=== PATIENT | male | born 2000 | race Caucasian/White ===

== ENCOUNTER 2023-03-27 21:12 | Emergency (ER) | payer MEDICAID ==
[2023-03-27 22:00] LABS: BASOPHILS ABSOLUTE AUTO 0.03 K/mm3 (0.01-0.08); BASOPHILS PERCENT AUTO 0.4 % (0.1-1.2); EOSINOPHILS ABSOLUTE AUTO 0.32 K/mm3 (0.04-0.54); EOSINOPHILS PERCENT AUTO 3.7 (0.8-7.0); HEMATOCRIT 43.3 % (40.1-51.0); IMMATURE GRAN ABSOLUTE AUTO 0.01 K/mm3 (0.00-0.10); IMMATURE GRAN PERCENT AUTO 0.1 % (<=1.0); LYMPHOCYTES ABSOLUTE AUTO 3.06 K/mm3 (1.32-3.57); LYMPHOCYTES PERCENT AUTO 35.8 % (21.8-53.1); MEAN CORPUSCULAR HEMOGLOBIN 28.5 pg (25.7-32.2); MEAN CORPUSCULAR HGB CONC 34.6 g/dl (32.2-35.5); MEAN CORPUSCULAR VOLUME 82.2 fl (79.0-92.2); MEAN PLATELET VOLUME 9.9 fl (9.4-12.3); MONOCYTES ABSOLUTE AUTO 0.63 K/mm3 (0.30-0.82); MONOCYTES PERCENT AUTO 7.4 % (5.3-12.2); NEUTROPHILS PERCENT AUTO 52.6 % (34.0-67.9); PLATELET COUNT,PLT 250 K/mm3 (163-337); RED BLOOD CELL COUNT 5.27 M/mm3 (4.63-6.08); WHITE BLOOD CELL COUNT,WBC 8.55 K/mm3 (4.23-9.07)
[2023-03-27 22:01] LABS: BASE EXCESS ARTERIAL -5.1 (-2-2.0); BICARBONATE,ARTERIAL 21.1 meq/L (22.0-26.0); O2 SATURATION ARTERIAL 95.6 % (96.0-97.0); PCO2 ARTERIAL 45.5 mmHg (35.0-45.0)
[2023-03-27 22:01] LABS: APPEARANCE,URINE CLEAR (Clear); BILIRUBIN,URINE NEGATIVE (Negative); COLOR,URINE LIGHT YELLOW (Yellow); GLUCOSE,URINE NEGATIVE (Negative); KETONES,URINE NEGATIVE (Negative); LEUKOCYTE ESTERASE,URINE NEGATIVE (Negative); NITRITE,URINE NEGATIVE (Negative); OCCULT BLOOD,URINE 2+ (Negative); PROTEIN,URINE NEGATIVE (Negative); UROBILINOGEN,URINE 0.2 (0.2-1.0)
[2023-03-27 22:13] LABS: BARBITURATE SCREEN,URINE NEGATIVE (CUTOFF=200); BENZODIAZEPINES SCREEN,URINE NEGATIVE (CUTOFF=150); BUPRENORPHINE SCREEN,URINE NEGATIVE (CUTOFF=10); METHADONE SCREEN, URINE NEGATIVE (CUT0FF=200); METHAMPHETAMINES SCREEN, URINE NEGATIVE (CUTOFF=500); OXYCODONE SCREEN,URINE NEGATIVE (CUT0FF=100); PROPOXYPHENE SCREEN,URINE NEGATIVE (CUTOFF=300); THC SCREEN,URINE 20 NG/ML NEGATIVE (CUTOFF=50)
[2023-03-27 22:17] LABS: AMPHETAMINES SCREEN, URINE NEGATIVE (CUTOFF=500)
[2023-03-27 22:17] LABS: A/G RATIO 1.2 (1-2); ALANINE AMINOTRANSFERASE,ALT 18 U/L (16-63); ALKALINE PHOSPHATASE 88 U/L (46-116); ANION GAP 11.8 (5-15); ASPARTATE AMNIOTRANSFERASE,AST 34 U/L (15-37); BILIRUBIN TOTAL 0.2 mg/dL (0.2-1.0); BLOOD UREA NITROGEN,BUN 16 mg/dL (7-18); BUN/CREATININE RATIO 13.3 (14-18); CALCIUM 8.5 mg/dL (8.5-10.1); CARBON DIOXIDE,CO2 26 mEq/L (21-32); CHLORIDE,CL 107 mEq/L (98-107); CREATININE 1.2 mg/dL (0.7-1.3); ESTIMATED GFR 88 mL/min (>60); ETHANOL BLOOD MEDICAL 0.24 gm% (0.00); GLUCOSE RANDOM 79 mg/dL (70-99); POTASSIUM,K 3.8 mEq/L (3.5-5.1); PROTEIN TOTAL,TP 7.3 g/dl (6.4-8.2); SODIUM,NA 141 mEq/L (136-145)
[2023-03-27 22:21] LABS: BACTERIA,URINE RARE /hpf (FEW); MUCUS,URINE RARE /hpf (FEW); RBC,URINE 20-30 /hpf (0-5); RENAL EPITHELIAL CELLS,URINE 0-5 /hpf (0-5); SQUAMOUS EPITHELIAL CELLS,UR 0-5 /hpf (0-5); WBC,URINE 0-5 /hpf (0-5)
[2023-03-27] MEDS ORDERED: Naloxone 0.4 MG/ML SDV IVPUSH ONE (22:52)
[2023-03-27] MEDS ORDERED: 50% Dextrose in Water 50 ML Syringe IVPUSH ONE ×2 (22:53→23:31)
[2023-03-27] MEDS ORDERED: Iopamidol 612 MG/ML 100 ML Bottle IVPUSH ONE (22:59)
[2023-03-27] MEDS ORDERED: Lactated Ringers 1,000 ML IV SCH (23:00)
[2023-03-28] MEDS ORDERED: Aspirin 81 MG Tab.Chew PO ONE (00:02)
[2023-03-28] MEDS ORDERED: D5 1/2 NS w/ 10 mEq/L KCl 1,000 ML IV SCH (00:45)
== END 2023-03-28 06:49 | disposition home or self-care (01) ==
LOC: JD.ED 21:12
DX: G40.909 Epilepsy, unspecified, not intractable, without status epilepticus (principal); E16.2 Hypoglycemia, unspecified
CPT/HCPCS: 36415; 36600; 70450; 71260; 72125; 74177; 80053; 80306; 80307; 81001; 82803; 82947; 83605; 85025; 96374; 96376; 99284; J3480; J7120; Q9967; J3490

== ENCOUNTER 2023-04-17 02:07 | Emergency (ER) | payer MEDICAID | END 2023-04-17 03:30 | LOC: JD.ED 02:07 | DX: S01.81XA Laceration without foreign body of other part of head, initial encounter (principal); F17.210 Nicotine dependence, cigarettes, uncomplicated; Y04.0XXA Assault by unarmed brawl or fight, initial encounter | CPT/HCPCS: 12011; 99283; 99284 ==

== ENCOUNTER 2025-04-28 02:36 | Inpatient (IN) | payer OTHER ==
[2025-04-28] MEDS ORDERED: Sodium Chloride 0.9% 10 ML Syringe FLUSH PRN (03:52)
[2025-04-28 04:04] LABS: APPEARANCE,URINE CLEAR (Clear); GLUCOSE,URINE NEGATIVE (Negative); OCCULT BLOOD,URINE NEGATIVE (Negative)
[2025-04-28 04:10] LABS: BUPRENORPHINE SCREEN,URINE NEGATIVE (CUTOFF=10); METHADONE SCREEN, URINE NEGATIVE (CUT0FF=200); METHAMPHETAMINES SCREEN, URINE NEGATIVE (CUTOFF=500); OXYCODONE SCREEN,URINE NEGATIVE (CUT0FF=100); THC SCREEN,URINE 20 NG/ML NEGATIVE (CUTOFF=50)
[2025-04-28 04:12] LABS: AMPHETAMINES SCREEN, URINE NEGATIVE (CUTOFF=500)
[2025-04-28 04:12] LABS: BASOPHILS ABSOLUTE AUTO 0.1 K/mm3 (0.0-0.2); BASOPHILS PERCENT AUTO 0.6 % (0.0-1.0); EOSINOPHILS ABSOLUTE AUTO 0.5 K/mm3 (0.0-0.4); EOSINOPHILS PERCENT AUTO 5.1 % (0.0-6.0); IMMATURE GRAN ABSOLUTE AUTO 0.03 K/mm3 (0.00-0.05); IMMATURE GRAN PERCENT AUTO 0.3 % (0.0-0.4); LYMPHOCYTES ABSOLUTE AUTO 3.4 K/mm3 (1.0-4.8); LYMPHOCYTES PERCENT AUTO 37.9 % (24.0-44.0); MEAN PLATELET VOLUME 9.8 fl (9.4-12.4); MONOCYTES ABSOLUTE AUTO 0.8 K/mm3 (0.0-0.8); MONOCYTES PERCENT AUTO 9.1 % (0.0-8.0); NEUTROPHILS ABSOLUTE AUTO 4.2 K/mm3 (1.8-7.7); NEUTROPHILS PERCENT AUTO 47.0 % (41.0-71.0); NRBC ABSOLUTE 0.00 (0.00-0.02); NRBC PERCENT 0.0 % (0.0-0.2); PLATELET COUNT,PLT 240 K/mm3 (150-400); RED BLOOD CELL COUNT 5.53 M/mm3 (4.52-5.90); WHITE BLOOD CELL COUNT,WBC 8.91 K/mm3 (3.9-11.3)
[2025-04-28] MEDS: Iopamidol 612 MG/ML 100 ML Bottle IVPUSH ONE (04:27)
[2025-04-28] MEDS: Iopamidol 612 MG/ML 30 ML SDV IV ONE (04:27)
[2025-04-28] MEDS: Sodium Chloride 0.9% 10 ML Syringe FLUSH PRN (04:27)
[2025-04-28 04:35] LABS: A/G RATIO 1.1 (1-2); ALANINE AMINOTRANSFERASE,ALT 28.0 U/L (16-63); ASPARTATE AMNIOTRANSFERASE,AST 34.0 U/L (15-37); BILIRUBIN TOTAL 0.3 mg/dL (0.2-1.0); BLOOD UREA NITROGEN,BUN 10.0 mg/dL (7-18); CARBON DIOXIDE,CO2 28.0 mEq/L (21-32); CHLORIDE,CL 106.0 mEq/L (98-107); CREATINE KINASE,CK 328.0 U/L (39-308); CREATININE 1.0 mg/dL (0.7-1.3); EST CRCL DRUG DOSING (CG) 106.88 mL/min; ESTIMATED GFR 108.0 mL/min (>60); ETHANOL BLOOD MEDICAL 0.28 gm% (0.00); GLUCOSE RANDOM 101.0 mg/dL (70-99); POTASSIUM,K 4.0 mEq/L (3.5-5.1); PROTEIN TOTAL,TP 7.4 g/dl (6.4-8.2); SODIUM,NA 140.0 mEq/L (136-145)
[2025-04-28] MEDS: Diphtheria,Pertussis(Acell),Tetanus Vaccine 0.5 ML Syringe IM ONE (07:02)
[2025-04-28] MEDS: Lactated Ringers 1,000 ML IV SCH (10:07)
[2025-04-28] MEDS ORDERED: LORazepam 2 MG/ML SDV IVPUSH PRN (13:50)
[2025-04-28] MEDS ORDERED: Naloxone 0.4 MG/ML SDV IVPUSH PRN (13:52)
[2025-04-28] MEDS ORDERED: Ondansetron 4 MG/2 ML SDV IV PRN (13:52)
[2025-04-28] MEDS ORDERED: Sennosides/Docusate Sodium 50-8.6 MG Tab PO PRN (13:52)
[2025-04-29 07:00] LABS: A/G RATIO 0.9 (1-2); ALANINE AMINOTRANSFERASE,ALT 17.0 U/L (16-63); ASPARTATE AMNIOTRANSFERASE,AST 22.0 U/L (15-37); BILIRUBIN TOTAL 0.9 mg/dL (0.2-1.0); BLOOD UREA NITROGEN,BUN 9.0 mg/dL (7-18); CARBON DIOXIDE,CO2 26.0 mEq/L (21-32); CHLORIDE,CL 104.0 mEq/L (98-107); CREATINE KINASE,CK 249.0 U/L (39-308); CREATININE 0.7 mg/dL (0.7-1.3); EST CRCL DRUG DOSING (CG) 164.37 mL/min; ESTIMATED GFR 133.0 mL/min (>60); GLUCOSE RANDOM 79.0 mg/dL (70-99); PHOSPHORUS 3.0 mg/dL (2.6-4.7); POTASSIUM,K 3.5 mEq/L (3.5-5.1); PROTEIN TOTAL,TP 5.8 g/dl (6.4-8.2); SODIUM,NA 138.0 mEq/L (136-145)
[2025-04-29 07:04] LABS: FOLIC ACID 20.0 ng/mL (8.6-58.9)
[2025-04-29 08:10] LABS: VITAMIN D,25-HYDROXY 17.4 ng/ml (30.0-100.0)
[2025-04-29] MEDS: Cyanocobalamin (Vitamin B12) 1,000 MCG Tab PO SCH (09:58)
[2025-04-29] MEDS: Magnesium Sulf/Wat 4 GM/50 mL 4 GM in Premix Bag 1 BAG IV ONE (09:58)
== END 2025-04-29 15:15 | disposition home or self-care (01) | DRG 440 ==
LOC: JD.ED 02:36 → EEVIPCON 07:42 → JD.MS 07:42
PROVIDERS: ADMIT Student in an Organized Health Care Education/Training Program; ATTEND Internal Medicine
PROC: 0HQ1XZZ Repair Face Skin, External Approach (ICD-10-PCS; principal; 2025-04-28)
DX: K85.21 Alcohol induced acute pancreatitis with uninfected necrosis (principal); R56.9 Unspecified convulsions; F41.9 Anxiety disorder, unspecified; F20.9 Schizophrenia, unspecified; F17.200 Nicotine dependence, unspecified, uncomplicated; F32.A Depression, unspecified; F43.12 Post-traumatic stress disorder, chronic; F10.129 Alcohol abuse with intoxication, unspecified; Z98.890 Other specified postprocedural states
CPT/HCPCS: 12013; 36415; 70450; 70450-26; 70486; 70486-26; 71260; 71260-26; 72125; 72125-26; 74177; 74177-26; 80053; 80306; 80307; 81003; 82306; 82550; 82607; 82746; 83690; 83735; 84100; 84425; 85025; 90471; 90715; 96360; 96361; 99222; 99239; 99285-25; A9270-GY; J1650; J2003; J3475; J7030; J7120; Q9967